=== PATIENT | female | born 1955 | race Caucasian/White ===

== ENCOUNTER 2025-09-05 07:39 | Emergency (ER) | payer OTHER ==
[~2025-09-05] VITALS: Ht 157.5 cm; Wt 77.1 kg
[2025-09-05] MEDS ORDERED: LEVALBUTEROL HCL 1.25 MG/3 ML SOLUTION IH SCH (08:00)
[2025-09-05] MEDS ORDERED: FAMOTIDINE/PF 20 MG/2 ML VIAL IV ONE (08:00)
[2025-09-05 09:54] LABS: BASO % 0.2 % (0.1-1.2); EOS # 0.00 (0.04-0.54); EOS % 0.0 % (0.7-7.0); LYMPH # 1.29 (1.18-3.74); LYMPH % 19.9 % (19.3-53.1); MEAN PLATELET VOLUME 8.60 fl (9.4-12.4); MONO # 0.17 (0.24-0.82); MONO % 2.6 % (4.7-12.5); NEUT # 4.98 (1.56-6.13); NEUT % 77.0 % (34.0-71.1); RED CELL DISTRIBUTION WIDTH 13.0 % (11.6-14.4)
[2025-09-05] MEDS ORDERED: CEFTRIAXONE SODIUM 1,000 MG VIAL IV ONE (10:15)
[2025-09-05 10:26] LABS: INR 1.09
[2025-09-05] MEDS ORDERED: CEFTRIAXONE SODIUM 2,000 MG VIAL ONE (10:27)
[2025-09-05 10:33] LABS: ALT/SGPT 40.0 U/L (12-78); AST/SGOT 51.0 U/L (15-37); BILIRUBIN TOTAL 0.53 mg/dL (0.3-1.2); BUN CREA RATIO 19.0 (7.0-25.0); CREATININE SERUM 0.69 mg/dL (0.55-1.02); GFR 84.11; GLOBULINA 3.3 G/DL (2.4-3.5); GLUCOSE FASTING 139.0 mg/dL (65-100); LDH 186.0 U/L (84-246); OSMOLALITY SERUM 291.0 MOSM/KG (275-295)
[2025-09-05] MEDS ORDERED: LEVALBUTEROL HCL 1.25 MG/3 ML SOLUTION IH ONE (10:47)
[2025-09-05 11:04] LABS: COVID-19 AG POSITIVE (NEGATIVE)
[2025-09-05] MEDS ORDERED: LEVALBUTER0.63 MG/3 IH (12:47)
== END 2025-09-05 13:29 | disposition home or self-care (01) ==
LOC: ER 07:39
PROVIDERS: General Practice
DX: U07.1 COVID-19 (principal); E03.9 Hypothyroidism, unspecified; I49.8 Other specified cardiac arrhythmias; Z88.8 Allergy status to other drugs, medicaments and biological substances
CPT/HCPCS: 36415; 71046; 82803; 94640; 96365; 96366; 99283; J0696; J3490